=== PATIENT | female | born 1975 | race Caucasian/White ===

== ENCOUNTER → 2022-07-26 16:30 | Outpatient (CLI) | payer OTHER, BC, SELFPAY ==
--- NOTE | ~2022-07-26 | MM_ITS ---
EXAMINATION: MM screening maykel BI w mary HISTORY: Screening TECHNIQUE: Craniocaudal and mediolateral oblique 3-D tomosynthesis images were obtained and synthetic 2-D images were generated. CAD analysis was submitted and interpreted. COMPARISON: Comparison to multiple prior studies sequentially, with oldest reviewed study dated 09/2014. BREAST PARENCHYMAL COMPOSITION: Breast composed of scattered areas of fibroglandular density FINDINGS: There is no evidence of suspicious mass, calcification, or architectural distortion to sugg est malignancy in either breast. There has been no suspicious interval change. IMPRESSION: 1. No mammographic evidence of malignancy. 2. Recommend routine screening mammography in one year. BI-RADS Category 1: Negative Reviewed, dictated and finalized at location A.
== END ==
PROVIDERS: PCP Family Medicine; Visit Provider Nurse Practitioner
DX: Z12.31 Encounter for screening mammogram for malignant neoplasm of breast (principal)
CPT/HCPCS: 77063; 77067

== ENCOUNTER 2023-01-02 17:32 | Outpatient (CLI) | payer BC, SELFPAY ==
--- NOTE | ~2023-01-02 | XR_ITS ---
EXAMINATION: XR lumbar spine 2-3V DATE: 01/02/2023 18:08 INDICATION: Low back pain, unspecified. TECHNIQUE: 3 views of lumbar spine were obtained. COMPARISON: None. FINDINGS: Bone alignment is normal. Vertebral body heights are normal. There is mildly decreased disc height at L3-L4. There are endplate osteophytes at multiple levels. There is multilevel facet joint osteoarthritis, severe bilaterally at L5-S1. IMPRESSION: 1. Mild lumbar spondylosis. Reviewed, dictated and finalized at location E. IMPRESSION: 1. Mild lumbar spondylosis.
--- NOTE | ~2023-01-02 | XR_ITS ---
EXAMINATION: XR hip LT min 2V DATE: 01/02/2023 18:08 INDICATION: Left hip pain. TECHNIQUE: 2 views of left hip were obtained. COMPARISON: None. FINDINGS: Bone alignment is normal. No acute fracture. There is cortical thickening of proximal femor al diaphysis medially, likely an old healed fracture. Left hip joint space is normal. IMPRESSION: 1. No etiology for the patient's symptoms. Reviewed, dictated and finalized at location E.
--- NOTE | ~2023-01-02 | XR_ITS ---
EXAMINATION: XR hip RT min 2V DATE: 01/02/2023 18:08 INDICATION: Right hip pain. TECHNIQUE: 2 views of right hip were obtained. COMPARISON: None. FINDINGS: Bone alignment is normal. No fracture. There is mild right hip osteoarthritis. IMPRESSION: 1. Mild right hip osteoarthritis. Reviewed, dictated and finalized at location E.
== END 2023-01-02 17:33 | disposition home or self-care (01) ==
PROVIDERS: PCP Family Medicine; Visit Provider Nurse Practitioner Family
DX: M25.552 Pain in left hip (principal); M47.896 Other spondylosis, lumbar region; M16.11 Unilateral primary osteoarthritis, right hip
CPT/HCPCS: 72100; 73502

== ENCOUNTER 2024-08-09 08:19 | Outpatient (CLI) | payer BC, SELFPAY ==
--- NOTE | ~2024-08-09 | US_ITS ---
EXAMINATION: US pelvic complete w TV INDICATION: Hirsutism. Hair loss. Facial hair growth. Increased testosterone levels. Comparison:No prior studies for comparison. TECHNIQUE: Multiple transabdominal and endovaginal sonographic images of the pelvis performed. FINDINGS: The uterus measures 5.3 x 1.8 x 2.7 cm. The endometrial complex measures 4 mm. The right ovary measures 1.7 x 1 x 0.9 cm and the left ovary measures 1.9 x 1 x 0.9 cm. There are sm all follicles in each ovary. Normal doppler signal in both ovaries. There is no free fluid in the pelvis. There are no abnormal masses seen on either side. IMPRESSION: 1. Unremarkable pelvic ultrasound. Reviewed, dictated and finalized at location A.
== END 2024-08-09 08:20 | disposition home or self-care (01) ==
PROVIDERS: PCP Family Medicine; Visit Provider Nurse Practitioner Women's Health
DX: L68.0 Hirsutism (principal); E28.1 Androgen excess
CPT/HCPCS: 76830; 76856

== ENCOUNTER 2024-10-21 16:22 | Outpatient (CLI) | payer BC, SELFPAY ==
--- NOTE | ~2024-10-21 | XR_ITS ---
HISTORY: M25.511 - Pain in right shoulder COMPARISON: None TECHNIQUE: 3 views of the right shoulder were performed FINDINGS: No acute fracture. The glenohumeral and acromioclavicular joint space is maintained The visualized portion of the adjacent right lung is clear. The humeral head is well seated within the glenoid fossa. IMPRESSION: No acute fracture or anterior dislocation. Clinical suspicion persists, cross-sectional imaging with MRI is recommended if the patient is clinic ally able. Reviewed, dictated and finalized at location A. IMPRESSION: No acute fracture or anterior dislocation. Clinical suspicion persists, cross-sectional imaging with MRI is recommended if the patient is clinically able.
--- OUTSIDE RECORDS SUMMARY | 2024-10-21 17:08 | XMS_ITS | Clinical Summary ---
Author Organization [facility] Address [address] [place] [address] Care Team Providers Care Zipper Cutter Name Role Phone Unavailable Primary Care Provider Unavailabl e Source Comments [facility],non-owned Affiliates and Associated Physician Practices is amultiple site organization consisting of ambulatory clinics and hospital sitesin [place], [place], [place] and [place]. This disclosure is being madepursuant to the Care Everywhere program and may not contain all information available regarding this patient. Last updated 18.[facility] OpenBook Allergies No known active allergies Medications * Be aware that medications may not be up to date on this document. Alwaysverify current medications with the patient. JK-Fgamzyoiowvzt-B cetaminophen (VICKS DAYQUIL COLD & FLU PO) Activ e Pseudoeph-Doxylami ne-DM-APAP (NYQUIL PO) Active Active Problems No known active problems Family History Medical History Relation Name Comments COPD - Chronic Obstructive Pulmonary Disease Father COPD - Chronic Obstructive Pulmonary Disease Mother Relation Name Status Comments Father Mother Social History Tobacco Use Types Packs/Day Years Used Date Smoking Tobacco: Never Smokeless Tobacco: Never Alcohol Use Standard Drinks/Week Comments Yes 0 (1 standard drink = 0.6 oz pur e alcohol) Monthly Comments No Sex and Gender Information Value Date Recorded Sex Assigned at Not on file Legal Sex Female 12:11 PM FUR COMBER Gender Identity Not on file Sexual Orientation Not on file Last Filed Vital Signs Vital Sign Reading Time Taken Comments Blood Pressure 120/74 04/23/2018 12:22 PM FUR COMBER Pulse 76 04/23/2018 12:22 PM FUR COMBER Temperature 37 C (98.6 F) 04/23/2018 12:22 PM FUR COMBER Respiratory Rate 16 04/23/2018 12:22 PM FUR COMBER Oxygen Saturation 97% 04/23/2018 12:22 PM FUR COMBER Inhaled Oxygen Concentration - - Weight 86.2 kg (190 lb) 04/23/2018 12:22 PM FUR COMBER Height 157.5 cm (5' 2) 04/23/2018 12:22 PM FUR COMBER Body Mass Index 34.75 04/23/2018 12:22 PM FUR COMBER Plan of Treatment Health Maintenance Due Date Last Done Comments COLOGUARD (AGES 45-75) - COL ON CA SCREENING 1973 COLON MONITORING 1973 COLONOSCOPY - COLON CA SCREENING 1973 CT COLONOGRAPHY - COLON CA SCREENING 1973 Colorectal Cancer Screening 1973 FIT - COLON CA SCREENING 1973 FLEX SIG - COLON CA SCREENING 1973 LIPID TESTING 1973 MAMMOGRAM 1973 HIV SCREENING 1988 HEPATITIS C SCREENING 07/09/1991 DTAP/TDAP/TD VACCINES (1 - Tdap) 1992 HEPATITIS B VACCINE (1 of 3 - 19+ 3-dose series) 1992 SCREENING FOR DIABETES 04/23/2018 PNEUMOCOCCAL VACCINE 50+ (1 of 1 - PCV) 07/14/2023 ZOSTER VACCINE (1 of 2) 07/14/2023 COVID-19 VACCINE (1 - 2023-2 5 season) 2024 DEPRESSION SCREENING 05/08/2024 INFLUENZA VACCINE (Season Ended) 2025 HIB VACCINE Aged Out No longer eligi ble based on patient's age to complete this topic HPV VACCINE Aged Out No longer eligi ble based on patient's age to complete this topic MENINGOCOCCAL (Group B) VACC INE SHARED DECISION-MAKING Aged Out No longer eligibl e based on patient's age to complete this topic MENINGOCOCCAL GROUPS A/C/Y/W VACCINE Aged Out No longer eligible b ased on patient's age to complete this topic Insurance [facility]
--- OUTSIDE RECORDS SUMMARY | 2024-10-21 17:08 | XMS_ITS | Clinical Summary ---
Author Organization [address] Address [address] [place] [id number] Care Team Providers Care Electronics Technician Name Role Phone Unknown, Notinfile Primary Care Provider Unavail able Allergies Active Allergy Reactions Criticality Noted Date Comments Venom-Honey Bee Anaphylaxis High 07/22/2024 Medications oseltamivir (TAMIFLU) 75 mg capsule TAKE 1 CAPSULE BY MOUTH EVERY 12 HOURS FOR 5 DAYS [address] (VOLTAREN) 75 mg EC tablet Take 1 tablet (75 mg total) by mouth 2 (two) times a day 5 Active albuterol HFA (PROVENTIL HFA,VENTOLIN HFA,PROAIR HFA) 90 mcg/actuation inhaler INHALE 1 PUFF BY MOUTH EVERY 4 HOURS NEEDED FOR SHORTNESS OF BREATH OR WHEEZING 5 Active lisinopriL (PRINIVIL,ZESTR IL) 10 mg tablet Take 1 tablet (10 mg total) by mouth daily 5 Active medroxyPROGESTE Sebastien 150 mg/mL injection 4 Active methocarbamoL (ROBAXIN) 500 mg tablet TAKE 1 TABLET BY MOUTH THREE TIMES DAILY NEEDED FOR BACK PAIN 5 Active benzonatate (TESSALON) 200 mg capsuleIndicati ons:Influenza A Take 1 capsule (200 mg total) by mouth 3 (three) times a day as needed for cough keep tessalon out of reach of children, especially children under the age of 10, due to possible serious risk such as if ingested by children under the age of 10. 30 capsule 5 Active Additional Information Patient not taking.Reported on 07/29/2024 budesonide-form oteroL (SYMBICORT) 80-4.5 mcg/actuation inhalerIndicati ons:Acute cough,Wheezing Inhale 2 puffs 2 (two) times a day Rinse mouth with water after use. Do not swallow. 1 each Active Active Problems No known active problems Encounters Date Type Department Care Team Description 07/29/2024 10:40 AM CDT Ancillary Procedure [facility] at [address] [phone] Acute cough 07/29/2024 10:30 AM CDT Office Visit [facility] at [address] [phone] Pasha Person NP Influenza A (Primary Dx); Acute cough; Wheezing 07/29/2024 Results Follow-Up [facility] at [address] [phone] Pasha Person NP XR Chest PA Lateral 2 Views 07/22/2024 11:15 AM CDT Ancillary Procedure [facility] at [address] [phone] Acute cough; Influenza A 07/22/2024 10:45 AM CDT Office Visit [facility] at [address] [phone] Pasha Person NP Influenza A (Primary Dx); Wheezing 07/22/2024 Results Follow-Up [facility] at [address] [phone] Pasha Person NP XR Chest PA Lateral 2 Views from Last 3 Months Social History Tobacco Use Types Packs/Day Years Used Date Smoking Tobacco: Never Assessed Comments Unknown Sex and Gender Information Value Date Recorded Sex Assigned at Not on file Legal Sex Female 9:34 AM CDT Gender Identity Not on file Sexual Orientation Not on file Obstetrics History Last Filed Vital Signs Vital Sign Reading Time Taken Comments Blood Pressure 136/82 07/29/2024 10:22 AM CDT Pulse 88 07/29/2024 10:45 AM CDT Temperature 36.6 C (97.8 F) 07/29/2024 10:22 AM CDT Respiratory Rate 20 07/29/2024 10:22 AM CDT Oxygen Saturation 99% 07/29/2024 10:45 AM CDT Inhaled Oxygen Concentration - - Weight 89.4 kg (197 lb) 07/29/2024 10:22 AM CDT Height - - Body Mass Index - - Plan of Treatment Health Maintenance Due Date Last Done Comments Breast Cancer Screening-Mammogram 1973 Cervical Cancer Screening 1973 Colon Cancer Screening-Colonoscopy 1973 Depression Screening 1973 Hepatitis C Screening 1973 DTaP/Tdap/Td Vaccine (1 - Tdap) 1984 Hepatitis B Screening 07/14/1991 Regular Well Visit/Exam 18-64 07/14/1991 Zoster Vaccine (1 of 2) 07/14/2023 Covid-19 Vaccine (4 - 2023-2 5 season) 2024 04/29/2021, 07/07/2020, 06/09/2020 Influenza Vaccine (Season Ended) 2025 05/02/2020 Pneumococcal vaccine <65 Aged Out No longer eligible based on patient's age to complete this topic Procedures Procedure Name Priority Date/Time Associated Diagnosis Comments XR CHEST PA LATERAL 2 VIEWS Schedule KEVIN, Read KEVIN (Appt Today, Awaiting Results) 07/29/2024 10:49 AM CDT Acute cough XR CHEST PA LATERAL 2 VIEWS Schedule KEVIN, Read KEVIN (Appt Today, Awaiting Results) 07/22/2024 11:15 AM CDT Acute cough Influenza A from Last 3 Months Results * XR Chest PA Lateral 2 Views (07/29/2024 10:49 AM CDT) Anatomical Region Laterality Modality Body, Chest N/A Digital Radiogra phy 07/29/2024 1:36 PM CDT Narrative 07/29/2024 1:37 PM CDT EXAM DESCRIPTION: XR CHEST PA LATERAL 2 VIEWS REASON FOR STUDY: cough, FLU A, and cough and wheezing persisting after tx with prednisone, albuterol Pt complains of cough for a little over week, Flu A +. No surgery to heart, lungs, or chest. Non-smoker. TECHNIQUE: Frontal and lateral radiographic view(s) of the chest. COMPARISON: 07/22/2024 FINDINGS: The heart, mediastinum, and pulmonary vasculature are grossly stable. There is no definite evidence of a pneumothorax. There is no definite evidence of a focal consolidation or pleural effusion. The osseous structures are acutely grossly stable. IMPRESSION: No acute cardiopulmonary abnormality. THIS IS AN ELECTRONICALLY VERIFIED FINAL REPORT 07/29/2024 1:37 PM - Electronically signed by Sid Bates D.O. PS T: Report ID: [id number] Reading Location: [id number] Procedure Note Sid Bates, DO - 07/29/2024 EXAM DESCRIPTION: XR CHEST PA LATERAL 2 VIEWS REASON FOR STUDY: cough, FLU A, and cough and wheezing persisting after tx with prednisone, albuterol Pt complains of cough for a little over week, Flu A +. No surgery toheart, lungs, or chest. Non-smoker. TECHNIQUE: Frontal and lateral radiographic view(s) of the chest. COMPARISON: 07/22/2024 FINDINGS: The heart, mediastinum, and pulmonary vasculature are grossly stable. There is no definite evidence of a pneumothorax. There is no definite evidence of a focal consolidation or pleural effusion. The osseous structures are acutely grossly stable. IMPRESSION: No acute cardiopulmonary abnormality. THIS IS AN ELECTRONICALLY VERIFIED FINAL REPORT 07/29/2024 1:37 PM - Electronically signed by Sid Bates D.O. PS T: Report ID: [id number] Reading Location: [id number] Pasha Person NP IMPradeep XR PROCEDURES Final Result * XR Chest PA Lateral 2 Views (07/22/2024 11:15 AM CDT) Anatomical Region Laterality Modality Body, Chest N/A Digital Radiogra phy 07/22/2024 4:36 PM CDT Narrative 07/22/2024 4:36 PM CDT EXAM DESCRIPTION: XR CHEST PA LATERAL 2 VIEWS REASON FOR STUDY: cough Pt complains of cough starting morning. No surgery to heart, lungs, or chest. Non-smoker. TECHNIQUE: There are 2 radiographic view(s) of the chest. COMPARISON: No prior FINDINGS: LUNGS: Pulmonary vascularity appears normal. No confluent infiltrate or effusion. Costophrenic angles are sharp. HEART/MEDIASTINUM: Cardiac silhouette normal in size. Mediastinal and hilar contours appear normal. LINES/TUBES: None. BONES: Mild multilevel spondylosis thoracic spine. IMPRESSION: No acute cardiopulmonary abnormality. THIS IS AN ELECTRONICALLY VERIFIED FINAL REPORT 07/22/2024 4:36 PM - Electronically signed by Santos RUBIO T: Report ID: [id number] Reading Location: [id number] Procedure Note Santos Leal MD - 07/22/2024 EXAM DESCRIPTION: XR CHEST PA LATERAL 2 VIEWS REASON FOR STUDY: cough Pt complains of cough starting Th morning. No surgery to heart,lungs, or chest. Non-smoker. TECHNIQUE: There are 2 radiographic view(s) of the chest. COMPARISON: No prior FINDINGS: LUNGS: Pulmonary vascularity appears normal. No confluent infiltrate or effusion. Costophrenic angles are sharp. HEART/MEDIASTINUM: Cardiac silhouette normal in size. Mediastinal andhilar contours appear normal. LINES/TUBES: None. BONES: Mild multilevel spondylosis thoracic spine. IMPRESSION: No acute cardiopulmonary abnormality. THIS IS AN ELECTRONICALLY VERIFIED FINAL REPORT 07/22/2024 4:36 PM - Electronically signed by Santos RUBIO T: Report ID: [id number] Reading Location: [id number] Pasha Person NP IMG XR PROCEDURES Final Result from Last 3 Months Insurance [employer] P[place] Care Teams Electronics Technician Relationship Specialty Start Date End Date Unknown, Notinfile PCP - General 07/22/24
--- OUTSIDE RECORDS SUMMARY | 2024-10-21 17:08 | XMS_ITS | Referral Summary ---
Author Organization [address] Address [address] [place] [phone] Care Team Providers Care Insurance Agency Manager Name Role Phone Unknown, Notinfile Primary Care Provider Unavail able Encounters Date Type Department Care Team Description 07/29/2024 Results Follow-Up [facility] at [address] [phone] Pasha Person NP XR Chest PA Lateral 2 Views 07/29/2024 10:40 AM CDT Ancillary Procedure [facility] at [address] [phone] Acute cough 07/29/2024 10:30 AM CDT Office Visit [facility] at [address] [phone] Pasha Person NP Influenza A (Primary Dx); Acute cough; Wheezing 07/22/2024 Results Follow-Up [facility] at [address] [phone] Pasha Person NP XR Chest PA Lateral 2 Views 07/22/2024 11:15 AM CDT Ancillary Procedure [facility] at [address] [phone] Acute cough; Influenza A 07/22/2024 10:45 AM CDT Office Visit [facility] at [address] [phone] Pasha Person NP Influenza A (Primary Dx); Wheezing from Last 3 Months Allergies Active Allergy Reactions Criticality Noted Date [...] after use. Do not swallow. 1 each 5 Active Active Problems No known active problems Social History Tobacco Use Types Packs/Day Years [...] Mass Index - - Plan of Treatment Not on file Procedures Procedure Name Priority Date/Time Associated Diagnosis [...] Sid Bates D.O. PS T: Report ID: [id number] Reading Location: [id number] Procedure Note Sid Bates DO - 07/29/2024 EXAM DESCRIPTION: XR CHEST [...] 1:37 PM - Electronically signed by Sid DOUGHERTY T: Report ID: [id number] Reading Location: [place] [address] Pasha Person NP IMG XR PROCEDURES Final Result * XR Chest [...] signed by Santos RUBIO T: Report ID: [id number] Reading Location: [id number] Procedure Note Santos Leal MD - 07/22/2024 EXAM DESCRIPTION: XR CHEST PA LATERAL 2 VIEWS REASON FOR STUDY: cough Pt complains of cough starting morning. No surgery to heart,lungs, or chest. [...] 4:36 PM - Electronically signed by Santos Leal M.D. MJ T: Report ID: [id number] Reading Location: [id number] Pasha Person NP IMG XR PROCEDURES Final Result from Last 3 Months [facility] [place] Care Teams Insurance Agency Manager Relationship Specialty Start Date End Date Unknown, Notinfile PCP - General 07/22/24
== END 2024-10-21 16:23 | disposition home or self-care (01) ==
PROVIDERS: PCP Family Medicine; Visit Provider Nurse Practitioner Family
DX: M25.511 Pain in right shoulder (principal)
CPT/HCPCS: 73030

== ENCOUNTER 2025-01-20 13:04 | Outpatient (CLI) | payer BC, SELFPAY ==
--- NOTE | ~2025-01-20 | MM_ITS ---
EXAMINATION: MM screening maykel BI w mary HISTORY: Screening TECHNIQUE: Craniocaudal and mediolateral oblique 3-D tomosynthesis images were obtained and synthetic 2-D images were generated. CAD analysis was submitted and interpreted. COMPARISON: 07/26/2022 BREAST PARENCHYMAL COMPOSITION: There are scattered areas of fibroglandular density. FINDINGS: There is no evidence of suspicious mass, calcification, or architectural distortion in either breast to suggest malignancy. There has been no significant interval change. IMPRESSION: 1. No mammographic evidence of malignancy. Recommend routine screening mammography in one year. BI-RADS Category 1: Negative Reviewed, dictated and finalized at location Q. IMPRESSION: 1. No mammographic evidence of malignancy. Recommend routine screening mammogra phy in one year. BI-RADS Category 1: Negative
== END 2025-01-20 13:05 | disposition home or self-care (01) ==
PROVIDERS: PCP Family Medicine; Visit Provider Obstetrics & Gynecology Gynecology
DX: Z12.31 Encounter for screening mammogram for malignant neoplasm of breast (principal)
CPT/HCPCS: 77063; 77067

== ENCOUNTER 2025-02-03 08:44 | Outpatient (CLI) | payer BC, SELFPAY ==
--- NOTE | ~2025-02-03 | XR_ITS ---
XR lumbar spine min 4V Indication: M54.50 - Low back pain, unspecified Comparison: None Findings: Grade 1 anterolisthesis of L5 on S1, no fracture is identified. Moderate loss of disc height at L5-S1. Soft tissues unremarkable Impression: No acute abnormality. Reviewed, dictated and finalized at location P. Impression: No acute abnormality.
== END 2025-02-03 08:45 | disposition home or self-care (01) ==
LOC: MICIMG 08:45
PROVIDERS: PCP Family Medicine; Visit Provider Nurse Practitioner Family
DX: M54.50 Low back pain, unspecified (principal)
CPT/HCPCS: 72110

== ENCOUNTER 2025-02-16 10:51 | Emergency (ER) | payer BC, SELFPAY ==
--- OUTSIDE RECORDS SUMMARY | 2019-04-01 09:00 | XMS_ITS | Continuity of Care Document ---
Author Organization [facility] Address [facility] [address] [place] [address] Phone Care Team Providers Care Atv Mechanic Name Role Phone Dat PT, DPT, Tramaine Unavailable Unavailable Procedures Procedure Date Free Assessment Advance Directives Directive Yes / No Effective Date File Name No Information Encounters Encounter Description Practice Location Reason(s) For Visit Diagnoses Date Provider Providers Copied on Encounter [facility], [address] [place], [place] [address], [place], [place], [id number], [place] tel:[phone] [place] No Information 9 Dat Redd. . Referring Provider: Physician Screen. Family History Family Member Type Diagnosis Age At Onset No Information Payers Payer name Insurance type Covered republican ID Authoriza tion(s) No Information Social History Type Description Quantity Date Captured Comments Sex Female Smoking Status No Information Chief Complaint And Reason For Visit No Information Reason For Referral Reason For Referral No Information History Of Present Illness Encounter Date Complaint History Of Prese nt Illness No Information Functional Status Date Functional Assessmen t No Information Instructions Date Instruction Additional Infor mation No Information Assessments Type Assessment Date No Information Patient Care Teams Name Effective Dates (start - stop) Status Members No Information
--- NOTE | ~2025-02-16 | CT_ITS ---
EXAMINATION: CT lumbar spine wo con COMPARISON: None HISTORY: back pain TECHNIQUE: Axial images were obtained through the spine without IV contrast. Coronal, sagittal reconstruction images were obtained from the axial views. CT scan performed using dose optimization techniques including the following automated exposure control; adjustment of mA and/or kV; use of iterative reconstruction technique. Automatic exposure control was used to reduce radiation dose. Permanent radiation dose record is archived to PACS. FINDINGS: Grade 1 anterolisthesis of L5 on S1, no fracture is identified. Severe loss of disc height at L5-S1 with moderate to severe canal and foraminal stenosis. Soft tissues unremarkable. Impression: No acute abnormality. Reviewed, dictated and finalized at location P. Impression: No acute abnormality.
--- OUTSIDE RECORDS SUMMARY | 2025-02-16 10:15 | XMS_ITS | Encounter Summary ---
Author Organization [facility] Address [address] [place] [address] Care Team Providers Care Administrative Sales Assistant Name Role Phone Unknown, Notinfile Primary Care Provider Unavail able Reason for Visit * Reason Comments Back Pain Has been on going an d seen PCP about this and has had xrays. Started PT last week and went to chiropractor and things were going good. Monday sharp muscle spasms started going down butt but now down leg. Has been taking 800 IBU and 1000 Robaxin. Narrowing of S1 and L5 and moderate loss of disc height. PCP started 30mg prednisone for 5 days and seemed to lessen the pain than what it is now. Also, referred to neurosurgery. 800 IBU 1000 Robaxin this morning at 0600. Encounter Details Date Type Department Care Team (Late st Contact Info) Description 02/16/2025 10:15 AM CDT Office Visit [facility] at [address] [phone] Araceli Reagan PA [address] [place] [address] [address] [place] [address] Acute left-sided low back pain with left-sided sciatica (Primary Dx); Leg numbness Social History Tobacco Use Types Packs/Day Years Used Date Smoking Tobacco: Never Assessed Comments Unknown Sex and Gender Information Value Date Recorded Sex Assigned at Not on file Legal Sex Female 9:34 AM CDT Gender Identity Not on file Sexual Orientation Not on file documented as of this encounter Last Filed Vital Signs Vital Sign Reading Time Taken Comments Blood Pressure 137/95 02/16/2025 10:09 AM CDT Pulse 102 02/16/2025 10:09 AM CDT Temperature 37 C (98.6 F) 02/16/2025 10:09 AM CDT Respiratory Rate 20 02/16/2025 10:09 AM CDT Oxygen Saturation 99% 02/16/2025 10:09 AM CDT Inhaled Oxygen Concentration - - Weight - - Height - - Body Mass Index - - documented in this encounter Plan of Treatment Not on file documented as of this encounter Visit Diagnoses Diagnosis Acute left-sided low back pain with left-sided sciatica- Primary Leg numbness Disturbance of skin sensation documented in this encounter Care Teams Administrative Sales Assistant Relationship Specialty Start Date End Date Unknown, Notinfile PCP - General 07/22/24 documented as of this encounter
--- OUTSIDE RECORDS SUMMARY | 2025-02-16 10:53 | XMS_ITS | Clinical Summary ---
Author Organization [facility] Address [address] [place] [address] Care Team Providers Care Deburrer Strip Name Role Phone Unavailable Primary Care Provider Unavailabl e Source Comments [facility],non-owned Affiliates and Associated Physician Practices is amultiple site organization consisting of ambulatory clinics and hospital sitesin [place], [place], [place] and [place]. This disclosure is being madepursuant to the Care Everywhere program and may not contain all information available regarding this patient. Last updated 18.[facility] [employer] Allergies No known active allergies Medications * Be aware that medications may not be up to date on this document. Alwaysverify current medications with the patient. [id number]-[id number] cetaminophen (VICKS DAYQUIL COLD & FLU PO) [...] on file Legal Sex Female 12:11 PM PATIENT INSURANCE CLERK Gender Identity Not on file Sexual Orientation Not on file Last Filed Vital Signs Vital Sign Reading Time Taken Comments Blood Pressure 120/74 04/23/2018 12:22 PM PATIENT INSURANCE CLERK Pulse 76 04/23/2018 12:22 PM PATIENT INSURANCE CLERK Temperature 37 C (98.6 F) 04/23/2018 12:22 PM PATIENT INSURANCE CLERK Respiratory Rate 16 04/23/2018 12:22 PM PATIENT INSURANCE CLERK Oxygen Saturation 97% 04/23/2018 12:22 PM PATIENT INSURANCE CLERK Inhaled Oxygen Concentration - - Weight 86.2 kg (190 lb) 04/23/2018 12:22 PM PATIENT INSURANCE CLERK Height 157.5 cm (5' 2) 04/23/2018 12:22 PM PATIENT INSURANCE CLERK Body Mass Index 34.75 04/23/2018 12:22 PM PATIENT INSURANCE CLERK Plan of Treatment Health Maintenance Due Date [...] 07/14/2023 ZOSTER VACCINE (1 of 2) 07/14/2023 DEPRESSION SCREENING 05/08/2024 COVID-19 VACCINE (1 - 2023-2 5 season) 2025 INFLUENZA VACCINE (#1) 2025 HIB VACCINE Aged Out No longer [...] patient's age to complete this topic Insurance [facility]
--- OUTSIDE RECORDS SUMMARY | 2025-02-16 10:53 | XMS_ITS | Clinical Summary ---
Author Organization [address] Address [address] [place] [id number] Care Team Providers Care Research Laboratory Manager Name Role Phone Unknown, Notinfile Primary [...] Encounters Date Type Department Care Team Description 02/16/2025 10:15 AM CDT Office Visit [facility] [address] [phone] Araceli Reagan PA Acute left-sided low back pain with left-sided sciatica (Primary Dx); Leg numbness from Last 3 Months Social History Tobacco [...] of 2) 07/14/2023 Covid-19 Vaccine (4 - 2024-2 6 season) 2025 04/29/2021, 07/07/2020, 06/09/2020 Influenza Vaccine (#1) 2025 0, 01/21/2014, 03/04/2011 Pneumococcal vaccine <65 Aged Out No longer eligible based on patient's age to complete this topic Insurance [employer] [place] Care Teams Research Laboratory Manager Relationship Specialty Start Date End Date Unknown, Notinfile PCP - General 07/22/24
[2025-02-16 11:25] VITALS: BP 148/92; PULSE 83; RESP 20; TEMP 37.4; O2SAT 98
[2025-02-16] MEDS: HYDROmorphone HCL INJ (*CRX) 1 MG/ML SYR IV PUSH (13:49)
[2025-02-16] MEDS: LIDOCAINE 5% PATCH 1 PATCH TRANSDERM (13:49)
[2025-02-16] MEDS: dexAMETHasone SOD PHOS INJ 10 MG/ML 1 ML VIAL IV PUSH (13:49)
[2025-02-16] MEDS: diazePAM INJ (*CRX) 10 MG/2 ML SYRINGE 5 MG IV PUSH (13:57)
[2025-02-16] MEDS: KETOROLAC 15 MG/ML VIAL (*BKC) IV PUSH (15:45)
--- NOTE | 2025-02-16 16:08 | ED.GENADULT ---
HPI - General Adult General Chief complaint: Back Pain/Injury Stated complaint: BACK PAIN RADIATING DOWN L LEG Time Seen by Provider: 02/16/25 12:55 History of Present Illness HPI narrative: Patient is a 49-year-old female who presents emergency department with chief complaint of low back pain that radiates down the left leg the patient reports she has had some tingling along her posterior aspect of her thigh denies footdrop denies bowel or bladder incontinence denies saddle anesthesia. The patient reports been taking ibuprofen and Robaxin without relief Related Data Allergies Allergy/AdvReac Type Severity Reaction Status Date / Time venom-honey bee AdvReac Severe Anaphylactic Verified 02/16/25 10:52 Shock Review of Systems Review of Systems: A 10 system review of systems was completed on the patient and is negative except for what is stated in the HPI. Nursing and ancillary documentation was reviewed. [facility] Past Medical History Medical History Lumbar stenosis Mood changes Dizziness Hot flashes Facial twitching Hip pain Seasonal allergic reaction Influenza A Weight gain, abnormal Right shoulder pain BMI 30.0-30.9,adult Adult BMI 36.0-36.9 kg/sq m BMI 35.0-35.9,adult Acute bronchitis due to other specified organisms Anxiety and depression Breast lump Cough Dietary counseling and surveillance (11/30/18) Essential hypertension Obesity (BMI 30-39.9) Pain of right great toe Periorbital dermatitis Screening for diabetes mellitus Screening for thyroid disorder Screening, lipid Serum potassium elevated Vaginal dryness Family History Family History Father Hypertension Acute myocardial infarction COPD (chronic obstructive pulmonary disease) Tobacco abuse Mother COPD (chronic obstructive pulmonary disease) Tobacco abuse Sibling Acute myocardial infarction Tobacco abuse Sibling Diabetes mellitus Other Family history of chronic obstructive pulmonary disease Social History Social History Smoking status: Never smoker Second hand tobacco smoke exposure: Yes Alcohol intake: current Substance use: never Substance use type: does not use Do You Feel Safe in your Home?: Yes Lack of Transportation: No Lack of Food: Never True Current Housing: I Have Housing Concerned About Future Housing: No Difficulty Paying Gas/Electric Bills: No Difficulty Paying for Meds: No Currently Unemployed: No Difficulty w/ Childcare or Family Care: No Living arrangements: with family Occupation/Education: occupation 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 HEAD: Normocephalic, atraumatic. EYES: PERRLA and EOMI. ENT: Nares clear, no rhinorrhea or epistaxis. Mucous membranes moist. NECK: Supple. CHEST: Clear to auscultation. No respiratory distress. HEART: Regular rate and rhythm. No murmur heard. Normal peripheral pulses. ABDOMEN: Soft, nontender, nondistended, normal active bowel sounds. EXTREMITIES: Normal range of motion. No edema. SKIN: Warm, dry, no rash. NEURO: No focal deficits. Alert and oriented x3. No footdrop no saddle anesthesia PSYCH: Normal mood and affect. Course Vital Signs Vital signs: Vital Signs Temperature 37.4 C 02/16/25 11: Pulse Rate 83 02/16/25 11:25 Respiratory Rate 20 02/16/25 11:25 Blood Pressure 148/92 H 02/16/25 11:25 Pulse Oximetry 98 02/16/25 11:25 Temperature 37.4 C 02/16/25 11:25 Pulse Rate 83 02/16/25 11:25 Respiratory Rate 20 02/16/25 11:25 Blood Pressure 148/92 H 02/16/25 11:25 Pulse Oximetry 98 02/16/25 11:25 Medical Decision Making [facility] Narrative Medical decision making narrative: Differential diagnosis includes lumbar radiculopathy, sciatica, degenerative disc disease, Patient's exam is consistent with sciatica CT scan of lumbar spine showed Grade 1 anterolisthesis of L5 on S1, no fracture is identified. Severe loss of disc height at L5-S1 with moderate to severe canal and foraminal stenosis. Soft tissues unremarkable. The patient was started on steroids muscle relaxer will be changed to the patient be given a prescription for Lidoderm patches will be given a short course of a narcotic pain medication for pain control and will be referred to Spine Vital Signs Vital Signs: Vital Signs Temperature 37.4 C 02/16/25 11:25 Pulse Rate 83 02/16/25 11:25 Respiratory Rate 20 02/16/25 11:25 Blood Pressure 148/92 H 02/16/25 11:25 Pulse Oximetry 98 02/16/25 11:25 Temperature 37.4 C 02/16/25 11:25 Pulse Rate 83 02/16/25 11:25 Respiratory Rate 20 02/16/25 11:25 Blood Pressure 148/92 H 02/16/25 11:25 Pulse Oximetry 98 02/16/25 11:25 Discharge Plan Discharge Clinical Impression: Sciatica, Lumbar stenosis, Low back pain Patient Disposition: Home Condition: Stable Instructions: Antibiotic Form, Sciatica (ED), Acute Low Back Pain (ED) Patient Language: Thai Prescriptions: New prednisone 20 mg tablet 40 mg PO DAILY 5 Days Qty: 10 0RF cyclobenzaprine 10 mg tablet 10 mg PO TID PRN (Reason: muscle spasm) Qty: 21 0RF hydrocodone-acetaminophen 5-325 mg tablet 1 tablet PO Q6H PRN (Reason: pain) 3 Days Qty: 12 0RF lidocaine [Lidoderm] 5 % adhesive patch,medicated 1 patch topical DAILY Qty: 15 0RF Rx Instructions: leave on most painful area for up to 12 hrs No Action alprazolam [Xanax] 0.25 mg tablet 0.25 mg PO BID PRN (Reason: anxiety) Qty: 60 0RF lisinopril 10 mg tablet See Rx Instructions .ROUTE .COMPLEX Qty: 90 1RF Dose Instruction: Take 1 tablet by mouth once daily Rx Instructions: Take 1 tablet by mouth once daily diclofenac sodium 75 mg tablet,delayed release (DR/EC) See Rx Instructions .ROUTE .COMPLEX Qty: 120 0RF Dose Instruction: Take 1 tablet by mouth twice daily Rx Instructions: Take 1 tablet by mouth twice daily methocarbamol 500 mg tablet See Rx Instructions .ROUTE .COMPLEX Qty: 30 0RF Dose Instruction: TAKE 1 TABLET BY MOUTH THREE TIMES DAILY NEEDED FOR BACK PAIN Rx Instructions: TAKE 1 TABLET BY MOUTH THREE TIMES DAILY NEEDED FOR BACK PAIN Follow-up/Referrals: Hugh Ramírez MD [Primary Care Provider, Family Practice] Naresh Cole MD [Physician, Neurosurgery] Time of Disposition: 16:18
== END 2025-02-16 16:48 | disposition home or self-care (01) ==
PROVIDERS: Emergency Provider Emergency Medicine; PCP Family Medicine
DX: M54.42 Lumbago with sciatica, left side (principal); M48.061 Spinal stenosis, lumbar region without neurogenic claudication; I10 Essential (primary) hypertension; F41.9 Anxiety disorder, unspecified; F32.A Depression, unspecified
CPT/HCPCS: 72131; 96374; 96375; 99284; A9270; J1100; J1171; J1885; J3360

== ENCOUNTER 2025-03-17 07:44 | Outpatient (CLI) | payer BC, SELFPAY ==
--- NOTE | ~2025-03-17 | MR_ITS ---
EXAMINATION: MR lumbar spine wo con DATE: 03/17/2025 08:21 INDICATION: Low back pain. TECHNIQUE: Magnetic resonance imaging (MRI) of the lumbar spine was performed without intravenous contrast. Sequences included sagittal T2-weighted FSE, sagittal T2-weighted FS FSE, sagittal T1-weighted FSE, and axial T2-weighted FSE. COMPARISON: CT lumbar spine 02/16/25 FINDINGS: There is 3 degrees dextrocurvature of thoracolumbar spine. Vertebral body heights are normal. There is mildly decreased disc height at L4-L5. The distal spinal cord signal intensity is normal. The conus medullaris is at L1. The following disc levels are specifically discussed: L1-L2: The disc does not extend beyond the endplate margin. There is moderate right and mild left facet joint osteoarthritis. There is no neural foraminal stenosis. There is no central canal stenosis. L2-L3: The disc is bulging. There is mild bilateral facet joint osteoarthritis. There is mild left neural foraminal stenosis. There is no central canal stenosis. L3-L4: The disc does not extend beyond the endplate margin. There is mild bilateral facet joint osteoarthritis. There is no neural foraminal stenosis. There is no central canal stenosis. L4-L5: The disc is bulging. There is mild bilateral facet joint osteoarthritis. There is mild bilateral neural foraminal stenosis. There is no central canal stenosis. L5-S1: The disc is bulging. There is severe bilateral facet joint osteoarthritis. There is mild bilateral neural foraminal stenosis. There is no central canal stenosis. IMPRESSION: 1. Mild lumbar spondylosis. Reviewed, dictated and finalized at location E. NEERING PRODUCTION LIAISON IMPRESSION: 1. Mild lumbar spondylosis.
== END 2025-03-17 07:45 | disposition home or self-care (01) ==
DX: M48.061 Spinal stenosis, lumbar region without neurogenic claudication (principal); M43.06 Spondylolysis, lumbar region
CPT/HCPCS: 72148